=== PATIENT | male | born 1965 | race Caucasian/White ===

== ENCOUNTER → 2022-02-13 | Day surgery (SDC) | payer OTHER ==
[~2022-02-13] MED LIST: FENTANYL CITRATE/PF 100MCG/2 ML INJ ONE; MIDAZOLAM HCL 2 MG/2 ML VIAL ONE; PROPOFOL IV EMULSION 10 MG/ML 20 ML VIAL ONE
[2022-02-13 10:10] VITALS: BP 129/86
== END | disposition home or self-care (01) ==
LOC: OR 06:17
PROVIDERS: ATTEND Surgery
DX: Z12.11 Encounter for screening for malignant neoplasm of colon (principal); Z01.810 Encounter for preprocedural cardiovascular examination; Z01.812 Encounter for preprocedural laboratory examination; Z20.822 Contact with and (suspected) exposure to COVID-19
CPT/HCPCS: 45378; 93005; J2250; J2704; J3010; U0002